=== PATIENT | male | born 1985 | race Caucasian/White ===

== ENCOUNTER 2020-10-15 19:29 | Emergency (ER) | payer OTHER | END 2020-10-15 20:47 | disposition home or self-care (01) | LOC: ER1 19:29 | DX: S81.011A Laceration without foreign body, right knee, initial encounter (principal); Z23 Encounter for immunization; W26.0XXA Contact with knife, initial encounter; Y92.009 Unspecified place in unspecified non-institutional (private) residence as the place of occurrence of the external cause | CPT/HCPCS: 12002; 73562; 90471; 90715; 99283 ==